=== PATIENT | female | born 1955 | race Caucasian/White ===

== ENCOUNTER 2018-05-27 20:21 | Emergency (ER) | payer SELFPAY ==
--- NOTE | 2018-05-27 20:34 | Emergency Department Record ---
History of Present Illness - General Chief complaint: Eye Problem Stated complaint: LOST VISION IN R EYE Time Seen by Provider: 05/27/18 20:22 Source: Patient Mode of Arrival: Ambulatory Limitations: No limitations [place] [facility] [place]: No - History of Present Illness Initial comments: 63 yo female presents to ED for evaluation of transient vision loss this afternoon affecting the right eye, lasting approximately 10 minutes before resolving. Patient denies other focal weakness on examination, numbness, tingling, or headache symptoms. Patient denies health problems at her baseline , does report long-standing history of smoking. chief complaint: Vision change Onset/Timin -: Hour(s) Onset Description: Sudden Location: Right eye If Injury: None Eye Symptoms: Decreased vision Severity: Moderate Consistency: Intermittent Associated Symptoms: None Treatments Prior to Arrival: None - Related Data Home Medications Medication Instructions Recorded Confirmed Last Taken No Home Med [NO HOME MEDS] 05/27/18 05/27/18 Unknown Allergies Allergy/AdvReac Type Severity Reaction Status Date / Time No Known Drug Allergies Allergy Verified 03/16/15 20:34 Travel Screening - Travel/Exposure Within Last 30 Days Have you traveled within the last 30 days?: No - Travel Symptoms Symptom Screening: None Review of Systems Constitutional: Denies: Chills, Fever, Malaise, Night sweats Eyes: Reports: Vision change. Denies: Eye discharge, Eye pain ENT: Denies: Congestion, Ear pain, Epistaxis Respiratory: Denies: Cough, Dyspnea Cardiovascular: Denies: Chest pain, Dyspnea on exertion Endocrine: Denies: Fatigue, Heat or cold intolerance Gastrointestinal: Denies: Abdominal pain, Nausea, Vomiting Genitourinary: Denies: Incontinence, Retention Musculoskeletal: Denies: Arthralgia, Back pain Skin: Denies: Bruising, Change in color Neurological: Denies: Abnormal gait, Confusion, Headache, Seizure Psychiatric: Denies: Anxiety Hematological/Lymphatic: Denies: Anemia, Blood Clots Past Medical History - SOCIAL HISTORY Smoking Status: Current every day smoker - RESPIRATORY Hx Respiratory Disorders: No - CARDIOVASCULAR Hx Cardio Disorders: No - NEURO Hx Neuro Disorders: No - GI Hx GI Disorders: No - Hx Genitourinary Disorders: No - ENDOCRINE Hx Endocrine Disorders: No - MUSCULOSKELETAL Hx Musculoskeletal Disorders: No - PSYCH Hx Psych Problems: No - HEMATOLOGY/ONCOLOGY Hx Hematology/Oncology Disorders: No Family Medical History Any Significant Family History?: No Family Hx Comment (NOT TO BE USED IN PLACE OF ITEMS BELOW): unknown-adopted Physical Exam - General General Appearance: Alert, Oriented x3, Cooperative, No acute distress Limitations: No limitations - Head Head exam: Atraumatic, Normocephalic, Normal inspection Head exam detail: negative: Abrasion, Contusion, Simmons's sign, General tenderness, Hematoma, Laceration - Eye Eye exam: Normal appearance. negative: Conjunctival injection, Periorbital swelling, Periorbital tenderness, Scleral icterus - ENT Ear exam: negative: Auricular hematoma, Auricular trauma Nasal Exam: negative: Active bleeding, Discharge, Dried blood, Foreign body Mouth exam: negative: Drooling, Laceration, Muffled voice, Tongue elevation - Neck Neck exam: Normal inspection. negative: Meningismus, Tenderness - Respiratory Respiratory exam: Normal lung sounds bilaterally. negative: Rales, Respiratory distress, Rhonchi, Stridor - Cardiovascular Cardiovascular Exam: Regular rate, Normal rhythm, Normal heart sounds - GI/Abdominal GI/Abdominal exam: Soft. negative: Rebound, Rigid, Tenderness - Rectal Rectal exam: Deferred - exam: Deferred - Extremities Extremities exam: Normal inspection. negative: Pedal edema, Tenderness - Back Back exam: Denies: CVA tenderness (R), CVA tenderness (L) - Neurological Neurological exam: Alert, Normal gait, Oriented X3 - Psychiatric Psychiatric exam: Normal affect, Normal mood - Skin Skin exam: Normal color. negative: Abrasion Type of lesion: negative: abrasion Course Vital Signs 05/27/18 20:26 Temperature 98.3 F Pulse Rate 72 Respiratory 20 Rate Blood Pressure 132/72 Pulse Ox 95 - Reevaluation(s) Reevaluation #1: 05/27/18 20:46 EKG NSR 69 Incomplete RBBB No acute ST-T wave changes are present. Reevaluation #2: 05/27/18 21:12 Laboratory studies were reviewed and are grossly unremarkable for an acute process. CT Brain: No acute process. Reevaluation #3: 05/27/18 21:19 Patient was updated on all results, will initiate transfer for further neurologic and vascular evaluation. Reevaluation #4: 05/27/18 21:50 Case was discussed with Dr. Alatorre and Dr. Mills, will accept transfer for further neurological evaluation at this time. Medical Decision Making - Lab Data Result diagrams: 05/27/18 20:38 05/27/18 20:38 Disposition Disposition: Transfer Clinical Impression: TIA (transient ischemic attack) Disposition: Acute Care Hospital Transfer Transfer To: [facility] Reason For Transfer: Neurology consultation, possible MRI/US carotids Accepting Physician: Landry/Gene Time Discussed w/Accepting Physician: 21:51 Condition: (2) Stable Forms: Patient Portal Access Time of Disposition: 21:51 Quality - Quality Measures Quality Measures: N/A - Blood Pressure Screening Does Patient Have Any of the Following: No Blood Pressure Classification: Pre-Hypertensive BP Reading Systolic Measurement: 132 Diastolic Measurement: 72 Screening for High Blood Pressure: < Pre-Hypertensive BP, F/U Documented > [ [id number]] Pre-Hypertensive Follow-up Interventions: Referral to alternative/primary care provider.
[2018-05-27 20:52] LABS: BASO % 0.6 % (0-6); EOS % 4.6 % (0-6); GRAN % 53.9 % (47-80); HEMATOCRIT 45.9 % (35.0-47.0); MEAN CELL VOLUME 95.6 fl (81-97); MEAN CORPUSCULAR HEMOGLOBIN 31.3 pg (27-33); MEAN CORPUSCULAR HGB CONC 32.7 g/dl (32-36); MEAN PLATELET VOLUME 9.3 fl (7.4-10.4); MONO % 10.9 % (0-9); PLATELET COUNT 377 K/uL (130-400); RED CELL DISTRIBUTION WIDTH 14.4 % (11.5-14.5); WHITE BLOOD COUNT W/O DIFF 8.2 K/uL (4.2-12.2)
[2018-05-27 21:01] LABS: BLOOD UREA NITROGEN 16 mg/dL (8-23); CREATININE 0.7 mg/dL (0.5-0.9); EST GLOMERULAR FILTRATION RATE > 60 mL/min; TOTAL PROTEIN 7.4 g/dL (6.6-8.7)
[2018-05-27 21:03] LABS: GLUCOSE,RANDOM 148 mg/dL (74-109)
[2018-05-27 21:06] LABS: ALB/GLOB RATIO 1.5 (1.1-1.8); ALBUMIN 4.4 g/dL (4.0-5.0); ALKALINE PHOSPHATASE 76 U/L (35-104); ALT/SGPT 14 U/L (<33); AST/SGOT 17 U/L (10.0-35.0)
--- NOTE | 2018-05-31 08:49 | CT SCAN REPORT ---
EXAM: CT OF THE BRAIN WITHOUT CONTRAST HISTORY: LOST VISION IN RIGHT EYE FOR ABOUT 5-10 MINUTES. TECHNIQUE: Noncontrast CT of the bra was obtained. Comparison: None. FINDINGS: The ventricles and subarachnoid spaces are normal in size. There is a small normal variant cavum septum pellucidum-cavum vergae. No area of abnormally increased or decreased attenuation is noted throughout the brain substance. No abnormal extraaxial fluid collection is seen. There is prominent choroid plexus calcification within the atria and temporal horns of each lateral ventricle symmetrically, likely developmental. The visualized paranasal sinuses and mastoid air cells are clear. The orbits as visualized are unremarkable. IMPRESSION: NO CT EVIDENCE OF AN ACUTE INTRACRANIAL ABNORMALITY. NORMAL VARIAN CAVUM SEPTUM PELLUCIDUM-CAVUM VERGAE. JOB NUMBER: [id number] [facility]
== END 2018-05-27 23:30 | disposition short-term general hospital (02) ==
LOC: ER 20:21
DX: G45.9 Transient cerebral ischemic attack, unspecified (principal); F17.210 Nicotine dependence, cigarettes, uncomplicated
CPT/HCPCS: 70450; 80053; 85025; 85610; 93005; 93010; 99285